=== PATIENT | male | born 1980 | race Caucasian/White ===

== ENCOUNTER 2023-07-12 09:25 | Emergency (ER) | payer OTHER, SELFPAY ==
[2023-07-12 10:00] VITALS: BP 114/70; PULSE 63; RESP 16; TEMP 37.1; O2SAT 100
--- NOTE | 2023-07-12 10:17 | ED.BACK ---
HPI - Back Pain/Injury General Chief Complaint: Back Pain/Injury Stated Complaint: back pain Time Seen by Provider: 07/12/23 10:02 History of Present Illness HPI Narrative: Patient is a 43-year-old male who presents ER with low back pain. Midline. No trauma that is known. 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 It has progressed since then. Worse with bending or twisting. He has had this issue in the past and gets better with anti-inflammatories muscle relaxers. No fevers or chills or sweats. No lower extremity numbness or weakness. No difficulty with urination /defecation. Related Data Allergies Allergy/AdvReac Type Severity Reaction Status Date / Time No Known Allergies Allergy Verified 07/12/23 09:26 Review of Systems Review of Systems: All systems reviewed & are unremarkable except as noted in HPI and below Constitutional: Constitutional: Denies chills and Denies fever(s) Musculoskeletal: Musculoskeletal: Reports back pain, Denies myalgias, Denies arthralgias and Denies joint swelling Integumentary/Breasts: Skin/Breast: Reports system reviewed and no additional complaints, except as docu Neurologic: Reports system reviewed and no additional complaints, except as documented PMFSH Past Medical History Medical History (Updated 07/12/23 @ 12:19 by Douglas Teixeira MD) Diabetes diet controlled Surgical History Surgical History (Updated 07/12/23 @ 10:19 by Douglas Teixeira MD) No pertinent past surgical history Social History Social History (Updated 07/12/23 @ 10:19 by Douglas Teixeira MD) Social History: former , receives care at the [facility]. Exam Narrative: GENERAL: Well-appearing, well-nourished, and in no acute distress. HEAD: Normocephalic, atraumatic. back: No midline tenderness the T/L-spine. Patient points to discomfort over the low lumbar spine near the sacrum but is not having reproducible tenderness with palpation. No reproducible paraspinal muscle tenderness. Back pain does increase when he is attempting to sit up or bend over. EXTREMITIES: Normal range of motion. No edema. SKIN: Warm, dry, no rash. NEURO: Alert and oriented x3. PSYCH: Normal mood and affect. Course Course Emergency Course: pain improving with Toradol and Valium. Discharged home with anti-inflammatories muscle relaxers. Patient verbalized understanding of treatment plan. Vital Signs Vital signs: Vital Signs Temperature 98.7 F 07/12/23 10:00 Pulse Rate 63 07/12/23 10:00 Respiratory Rate 16 07/12/23 10:00 Blood Pressure 114/70 07/12/23 10:00 Pulse Oximetry 100 07/12/23 10:00 Temperature 98.7 F 07/12/23 10:00 Pulse Rate 67 07/12/23 12:15 Respiratory Rate 14 07/12/23 12:15 Blood Pressure 119/74 07/12/23 12:15 Pulse Oximetry 99 07/12/23 12:15 Discharge Plan Discharge Clinical Impression: Strain of lumbar region Patient Disposition: Home, Self-Care Condition: Stable Instructions: Back Pain (ED) Additional Instructions: Please return to the emergency department if you develop severe pain that is not controlled by pain medications or if you are unable to walk because of pain or weakness. Return to the emergency department immediately if you develop fevers, loss of bowel or bladder control (dribbling of urine or having accidents you wouldn't normally have), inability to urinate, numbness of your genital or anal area, or weakness/numbness of your legs or arms as these could all be signs of a serious medical emergency. Prescriptions: New cyclobenzaprine 10 mg tablet 10 mg PO TID PRN (Reason: muscle spasm) Qty: 20 0RF naproxen 375 mg tablet 375 mg PO BID Qty: 14 0RF Follow-up/Referrals: UNKNOWN,DOCTOR [Primary Care Provider] - 1 Week
[2023-07-12] MEDS: KETOROLAC 30 MG/ML VIAL (*BKC) IV PUSH (10:40)
[2023-07-12] MEDS: diazePAM INJ (*CRX) 10 MG/2 ML SYRINGE 5 MG IV PUSH (10:41)
[2023-07-12] MEDS: SODIUM CHLORIDE 0.9% IV 1,000 ML 999 ML IV CONT (10:42)
[2023-07-12 12:15] VITALS: BP 119/74; PULSE 67; RESP 14; O2SAT 99
== END 2023-07-12 12:52 | disposition home or self-care (01) ==
PROVIDERS: Emergency Provider Emergency Medicine
DX: S39.012A Strain of muscle, fascia and tendon of lower back, initial encounter (principal); E11.9 Type 2 diabetes mellitus without complications; X58.XXXA Exposure to other specified factors, initial encounter
CPT/HCPCS: 96361; 96374; 96375; 99284; J1885; J3360; J7030

== ENCOUNTER 2023-09-29 23:17 | Emergency (ER) | payer OTHER, SELFPAY ==
[2023-09-29 23:26] VITALS: BP 131/68; PULSE 72; RESP 16; O2SAT 96
[2023-09-29 23:29] VITALS: BP 131/68; PULSE 82; RESP 15; O2SAT 97
--- NOTE | 2023-09-30 00:11 | ED.GENADULT ---
[facility] - General Adult General Chief complaint: Skin/Abscess/Foreign Body Stated complaint: boil on R buttock Time Seen by Provider: 09/29/23 23:41 Source: patient Mode of arrival: ambulatory Limitations: no limitations History of Present Illness HPI narrative: This is a 43-year-old male who presents to the ED with chief complaint of a boil to the right buttocks. Patient reports that he noticed the pain and swelling 3 days ago and has since got worse. Denies any drainage. Reports that he has history of a rectal abscess that had to be drained surgically multiple times. He does not want this area to become more problematic like last time. Denies fevers, chills, nausea, vomiting, abdominal pain, rectal pain, problems with bowel movements or urination. Related Data Allergies Allergy/AdvReac Type Severity Reaction Status Date / Time No Known Allergies Allergy Verified 07/12/23 09:26 Review of Systems Review of Systems: All systems as dictated in [facility] Past Medical History Medical History (Updated 09/30/23 @ 00:38 by José Miguel Kenney PA-C) Diabetes diet controlled Surgical History Surgical History (Updated 07/12/23 @ 10:19 by Douglas Teixeira MD) No pertinent past surgical history Social History Social History (Updated 07/12/23 @ 10:19 by Douglas Teixeira MD) Social History: former , receives care at the [facility]. Exam Narrative: GENERAL: Well-appearing, well-nourished, and in no acute distress. HEAD: Normocephalic, atraumatic. EYES: PERRLA and EOMI. ENT: Nares clear, no rhinorrhea or epistaxis. Mucous membranes moist. Oropharynx without tonsillar hypertrophy exudate or other lesions. NECK: Supple. No adenopathy or masses. CHEST: No respiratory distress. Clear to auscultation. No wheezes rales or rhonchi HEART: Regular rate and rhythm. No murmur heard. Normal peripheral pulses. ABDOMEN: Soft, nontender, nondistended, normal active bowel sounds. MSK: Normal range of motion. No edema. SKIN: There is a small 2-3 cm area of erythema, fluctuance/induration to the inner right buttocks. No active drainage. Moderate tenderness to the area improved. Relatively superficial in nature no evidence deeper tracking on exam. NEURO: Alert and oriented x3. No focal deficits. PSYCH: Normal mood and affect. Course Vital Signs Vital signs: Vital Signs Pulse Rate 72 09/29/23 23:26 Respiratory Rate 16 09/29/23 23:26 Blood Pressure 131/68 09/29/23 23:26 Pulse Oximetry 96 09/29/23 23:26 Oxygen Delivery Room Air 09/29/23 23:26 Pulse Rate 82 09/29/23 23:29 Respiratory Rate 15 09/29/23 23:29 Blood Pressure 131/68 09/29/23 23:29 Pulse Oximetry 97 09/29/23 23:29 Oxygen Delivery Room Air 09/29/23 23:26 Procedures Abscess I/D other: Date of Incision: 09/30/23 Time of Incision: 00:37 Side (if applicable): right Sedation/analgesia: none Local Anesthetic: lidocaine 1% and with epi Amount of anesthesia used (mL): 4 Technique: incised with #15 blade Amount of fluid expressed (mL): 5 Irrigation: No Packing used?: none I&D Results: Pus Abcess I&D Additional Comments: Dressed with nonadherent dressing Medical Decision Making MDM Narrative Medical decision making narrative: This is a 43-year-old male who presents to the ED with chief complaint of for abscess to the right buttock. Vitals are normal. Exam remarkable for the above. No evidence of perianal or deep tracking infection today. The area is superficially fluctuant. The area was well cleansed here in the ED. Anesthetized locally with lidocaine with epi. Able to express decent amount of purulent material. Patient was given Rx for Bactrim. Surgical referral given because he is dull with pilonidal abscesses in the past. Pt will be discharged in stable condition. Return precautions given and supportive measures discussed. Pt is und
[2023-09-30] MEDS: HYDROcodone/acetaminophen (*CRX) 5-325 MG TABLET 1 TAB PO (00:46)
== END 2023-09-30 01:00 | disposition home or self-care (01) ==
PROVIDERS: Emergency Provider Physician Assistant; PCP Emergency Medicine
DX: L02.31 Cutaneous abscess of buttock (principal); E11.9 Type 2 diabetes mellitus without complications
CPT/HCPCS: 10060; 99283; A9270